=== PATIENT | male | born 1990 | race Caucasian/White ===

== ENCOUNTER 2018-01-08 21:13 | Inpatient (IN) | payer OTHER ==
[2018-01-08 21:24] VITALS: BMI 20.5
--- NOTE | 2018-01-08 21:48 | HP ---
COWS - Scale Resting Pulse: 0= [place] 80 or Below Sweatin=Flushed/Facial Moisture Restless Observation: 1= Difficult to Sit Still Pupil Size: 1= Pupils >than Normal Bone or Joint Aches: 2= Severe Diffuse Aches Runny Nose/ Eye Tearin= Nasal Congestion GI Upset > 30mins: 1= Stomach Cramp Tremor Observation: 2= Slight Tremor Visible Yawning Observation: 1= 1-2x During Session Anxiety or Irritability: 2=Irritable/Anxious Goose Flesh Skin: 0=Smooth Skin COWS Score: 13 Admission ROS [facility] - [facility] Chief Complaint: Heroin withdrawal symptoms Allergies/Adverse Reactions: Allergies Allergy/AdvReac Type Severity Reaction Status Date / Time No Known Allergies Allergy Verified 01/08/18 21:40 History of Present Illness: 28 years old male with a history of heroin dependence is seeking admission to detox. This is his first admission to [facility] and first detox. He has medical history of depression and anxiety. He denies suicide attempt and suicidal ideation at this time. Exam Limitations: No Limitations - Ebola screening Have you traveled outside of the country in the last 21 days: No Have you had contact with anyone from an Ebola affected area: No Have you been sick,other than usual withdrawal symptoms: No - Review of Systems Constitutional: Chills, Loss of Appetite, Malaise, Changes in sleep, Weakness EENT: reports: No Symptoms Reported Respiratory: reports: No Symptoms reported Cardiac: reports: No Symptoms Reported GI: reports: Nausea, Poor Appetite, Poor Fluid Intake, Abdominal cramping : reports: No Symptoms Reported Musculoskeletal: reports: No Symptoms Reported Integumentary: reports: Dryness, Flushing Neuro: reports: Tremors Endocrine: reports: No Symptoms Reported Hematology: reports: No Symptoms Reported Psychiatric: reports: Anxious, Depressed Other Systems: Reviewed and Negative Patient History - Patient Medical History Hx Anemia: No Hx Asthma: No Hx Chronic Obstructive Pulmonary Disease (COPD): No Hx Cancer: No Hx Cardiac Disorders: No Hx Congestive Heart Failure: No Hx Hypertension: No Hx Hypercholesterolemia: No Hx Pacemaker: No HX Cerebrovascular Accident: No Hx Seizures: No Hx Dementia: No Hx Diabetes: No Hx Gastrointestinal Disorders: No Hx Liver Disease: No Hx Genitourinary Disorders: No Hx Sexually Transmitted Disorders: No Hx Renal Disease (ESRD): No Hx Thyroid Disease: No Hx Human Immunodeficiency Virus (HIV): No (Negative 2017) Hx Hepatitis C: No Hx Depression: Yes (Not on medication) Hx Suicide Attempt: No (Denies suicidal ideation) Hx Bipolar Disorder: Yes Hx Schizophrenia: Yes Other Medical History: Anxiety - Not on medication - Patient Surgical History Past Surgical History: No - PPD History Previous Implant?: Yes Documented Results: Negative w/o proof Implanted On Prior [facility] Admission?: No PPD to be Administered?: Yes - Reproductive History Patient is a Female of Child Bearing Age (11 -55 yrs old): No (Male) - Smoking Cessation Smoking history: Current every day smoker Have you smoked in the past 12 months: No Aproximately how many cigarettes per day: 20 Hx Chewing Tobacco Use: No Initiated information on smoking cessation: Yes 'Breaking Loose' booklet given: 01/08/18 - Substance & Tx. History Hx Alcohol Use: No Hx Substance Use: Yes Substance Use Type: Heroin, Marijuana, Opiates, Tranquilizers Hx Substance Use Treatment: No Family Disease History - Family Disease History Family History: Denies Family Disease History: Diabetes: Grandparent, Father, Mother, Respiratory: Daughter Admission Physical Exam [facility] - Vital Signs Vital Signs: Vital Signs - 24 hr 01/08/18 21:19 Temperature 97.4 F L Pulse Rate 70 Respiratory 16 Rate Blood Pressure 116/64 - Physical General Appearance: Yes: Moderate Distress, Tremorous, Irritable, Sweating, Anxious HEENTM: Yes: EOMI, Normal ENT Inspection, Normocephalic, Normal Voice, LAYO Respiratory: Yes: Lungs Clear, Normal Breath Sounds, No Respiratory Distress Neck: Yes: Supple Breast: Yes: Breast Exam Deferred Cardiology: Yes: Regular Rhythm, Regular Rate Abdominal: Yes: Normal Bowel Sounds Genitourinary: Yes: Within Normal Limits Back: Yes: Normal Inspection Musculoskeletal: Yes: Within Normal Limits Extremities: Yes: Normal Inspection Neurological: Yes: certified dental assistant II-XII NML intact, Alert, Depressed Affect Integumentary: Yes: Warm Lymphatic: Yes: Within Normal Limits - Diagnostic (1) Alcohol dependence with uncomplicated withdrawal Current Visit: Yes Status: Chronic (2) Depression Current Visit: Yes Status: Chronic Qualifiers: Depression Type: unspecified Qualified Code(s): F32.9 - Major depressive disorder, single episode, unspecified (3) Dehydration Current Visit: Yes Status: Chronic Cleared for Admission [facility] - Detox or Rehab [facility] Level of Care: Medically Managed Detox Regimen/Protocol: Methadone [facility] Breath Alcohol Content Breath Alcohol Content: 0 Urine Drug Screen - Results Drug Screen Negative: No Urine Drug Screen Results: THC-Marijuana, OPI-Opiates, BAR-Barbiturates, OXY- Oxycodone
[2018-01-08] MEDS ORDERED: MELATONIN 5 MG TABLETS PO PRN (22:00)
[2018-01-08] MEDS ORDERED: guaiFENesin/D-METHORPHAN HB 10 ML UNIT-DOSE CUPS PO PRN (22:01)
[2018-01-08] MEDS ORDERED: ACETAMINOPHEN 325 MG TABLET (FP) PO PRN (22:01)
[2018-01-08] MEDS ORDERED: IBUPROFEN 400 MG TABLET (FP) PO PRN (22:01)
[2018-01-08] MEDS ORDERED: METHADONE HCL 10 MG TABLET (FOR DETOX USE ONLY) PO ONE ×2 (22:01→23:00)
[2018-01-08] MEDS ORDERED: NICOTINE POLACRILEX 2 MG GUM BC PRN (22:01)
[2018-01-08] MEDS ORDERED: MAG HYDROX/AL HYDROX/SIMETH 30 ML UNIT-DOSE CUP PO PRN (22:01)
[2018-01-08] MEDS ORDERED: LOPERAMIDE HCL 2 MG CAPSULE PO PRN (22:01)
[2018-01-08] MEDS ORDERED: P-EPHED 60MG/TRIPROLIDI 2.5MG TABLET PO PRN (22:01)
[2018-01-08] MEDS ORDERED: MENTHOL/PHENOL 1 EACH UD MM PRN (22:01)
[2018-01-08] MEDS ORDERED: MAGNESIUM HYDROX 2400MG/30ML ORAL SUSPENSION 30 ML CUP PO PRN (22:01)
[2018-01-08] MEDS ORDERED: MAGNESIUM CITRATE 300 ML BOTTLE PO PRN (22:01)
[2018-01-08] MEDS: diazePAM 5 MG TABLET PO PRN (23:36)
[2018-01-09] MEDS: diazePAM 5 MG TABLET PO PRN ×4 (05:42→22:07)
[2018-01-09] MEDS ORDERED: METHADONE HCL 10 MG TABLET (FOR DETOX USE ONLY) PO ONE (10:00)
[2018-01-09] MEDS: NICOTINE 14 MG/24 HOURS TOPICAL PATCH TD SCH (10:42)
[2018-01-09] MEDS: PRENATAL VITAMINS W/ FOLIC ACID TABLET (FP) PO SCH (10:42)
[2018-01-09 11:12] LABS: URINE APPEARANCE CLEAR; URINE BILIRUBIN NEGATIVE (<2.0 mg/dL); URINE COLOR YELLOW; URINE GLUCOSE (UA) NEGATIVE (NEGATIVE); URINE KETONE NEGATIVE (NEGATIVE); URINE LEUK ESTERASE NEGATIVE (NEGATIVE); URINE NITRITE NEGATIVE (NEGATIVE); URINE PROTEIN NEGATIVE (NEGATIVE); URINE UROBILINOGEN NEGATIVE mg/dL (0.2-1.0)
[2018-01-09 11:17] LABS: HEMOGLOBIN 13.1 GM/dL (11.7-16.9); MCHC 33.5 g/dl (32.0-35.9); MEAN CELL VOLUME 89.3 fl (80-96); MEAN PLT VOLUME 10.2 fl (7.5-11.1); PLATELET COUNT 143 K/MM3 (134-434); RBC 4.37 M/mm3 (4.00-5.60); RDW 13.5 % (11.9-15.9); WHITE BLOOD COUNT 7.4 K/mm3 (4.0-10.0)
[2018-01-09 11:35] LABS: ALBUMIN 4.1 g/dl (3.4-5.0); ALK PHOS 81 U/L (45-117); ANION GAP 9 MMOL/L (8-16); BILIRUBIN,TOTAL 1.5 mg/dL (0.2-1); BLOOD UREA NITROGEN 13 mg/dL (7-18); CALCIUM 10.4 mg/dL (8.5-10.1); CHLORIDE 103 mmol/L (98-107); CO2 29 mmol/L (21-32); CREATININE 0.7 mg/dL (0.55-1.3); GLUCOSE,RANDOM 82 mg/dL (74-106); POTASSIUM 3.9 mmol/L (3.5-5.1); SGOT/AST 18 U/L (15-37); SGPT/ALT 72 U/L (13-61); SODIUM 140 mmol/L (136-145); TOT PROT 7.2 g/dl (6.4-8.2)
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
--- NOTE | 2018-01-09 15:37 | PN ---
[facility] COWS - Scale Resting Pulse: 0= [place] 80 or Below Sweatin= Chills/Flushing Restless Observation: 1= Difficult to Sit Still Pupil Size: 1= Pupils >than Normal Bone or Joint Aches: 2= Severe Diffuse Aches Runny Nose/ Eye Tearin= Nasal Congestion GI Upset > 30mins: 2= Nausea/Diarrhea Tremor Observation of Outstretched Hands: 1= Tremor [place], Not Seen Yawning Observation: 2= >3x During Session Anxiety or Irritability: 1=Feels Anxious/Irritable Goose Flesh Skin: 0=Smooth Skin COWS Score: 12 BHS Progress Note (SOAP) Subjective: body aches joints pain trouble sleep at night Objective: 01/09/18 15:37 Vital Signs Temperature 98.1 F 01/09/18 14:01 Pulse Rate 60 01/09/18 14:01 Respiratory Rate 16 01/09/18 14:01 Blood Pressure 120/65 01/09/18 14:01 O2 Sat by Pulse Oximetry (%) Laboratory Last Values WBC 7.4 K/mm3 (4.0-10.0) 01/09/18 07:49 RBC 4.37 M/mm3 (4.00-5.60) 01/09/18 07:49 Hgb 13.1 GM/dL (11.7-16.9) 01/09/18 07:49 Hct 39.0 % (35.4-49) 01/09/18 07:49 MCV 89.3 fl (80-96) 01/09/18 07:49 MCH 30.0 pg (25.7-33.7) 01/09/18 07:49 MCHC 33.5 g/dl (32.0-35.9) 01/09/18 07:49 RDW 13.5 % (11.9-15.9) 01/09/18 07:49 Plt Count 143 K/MM3 (134-434) D 01/09/18 07:49 MPV 10.2 fl (7.5-11.1) 01/09/18 07:49 Sodium 140 mmol/L (136-145) 01/09/18 07:49 Potassium 3.9 mmol/L (3.5-5.1) 01/09/18 07:49 Chloride 103 mmol/L (98-107) 01/09/18 07:49 Carbon Dioxide 29 mmol/L (21-32) 01/09/18 07:49 Anion Gap 9 MMOL/L (8-16) 01/09/18 07:49 BUN 13 mg/dL (7-18) 01/09/18 07:49 Creatinine 0.7 mg/dL (0.55-1.3) 01/09/18 07:49 Creat Clearance w eGFR > 60 (>60) 01/09/18 07:49 Random Glucose 82 mg/dL (74-106) 01/09/18 07:49 Calcium 10.4 mg/dL (8.5-10.1) H 01/09/18 07:49 Total Bilirubin 1.5 mg/dL (0.2-1) H 01/09/18 07:49 AST 18 U/L (15-37) 01/09/18 07:49 ALT 72 U/L (13-61) H 01/09/18 07:49 Alkaline Phosphatase 81 U/L (45-117) 01/09/18 07:49 Total Protein 7.2 g/dl (6.4-8.2) 01/09/18 07:49 Albumin 4.1 g/dl (3.4-5.0) 01/09/18 07:49 Urine Color Yellow 01/09/18 07:49 Urine Appearance Clear 01/09/18 07:49 Urine pH 6.0 (5.0-8.0) D 01/09/18 07:49 Ur Specific [place] 1.028 (1.001-1.035) 01/09/18 07:49 Urine Protein Negative (NEGATIVE) 01/09/18 07:49 Urine Glucose (UA) Negative (NEGATIVE) 01/09/18 07:49 Urine Ketones Negative (NEGATIVE) 01/09/18 07:49 Urine Blood Negative (NEGATIVE) 01/09/18 07:49 Urine Nitrite Negative (NEGATIVE) 01/09/18 07:49 Urine Bilirubin Negative (<2.0 mg/dL) 01/09/18 07:49 Urine Urobilinogen Negative mg/dL (0.2-1.0) 01/09/18 07:49 Ur Leukocyte Esterase Negative (NEGATIVE) 01/09/18 07:49 RPR Titer Nonreactive (NONREACTIVE) 01/09/18 07:49 lab noted Assessment: 01/09/18 15:40 withdrawal sx Plan: continue detox
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
[2018-01-09] MEDS: risperiDONE 1 MG TABLET (FP) PO SCH (22:07)
[2018-01-09] MEDS: THIAMINE HCL 100 MG TABLET (FP) PO SCH (22:07)
[2018-01-10] MEDS: diazePAM 5 MG TABLET PO PRN ×3 (08:39→18:46)
[2018-01-10] MEDS ORDERED: METHADONE HCL 5 MG TABLET (FOR DETOX USE ONLY) PO ONE (10:00)
[2018-01-10] MEDS: PRENATAL VITAMINS W/ FOLIC ACID TABLET (FP) PO SCH (10:02)
[2018-01-10] MEDS: risperiDONE 1 MG TABLET (FP) PO SCH ×2 (10:03→22:03)
[2018-01-10] MEDS: NICOTINE 14 MG/24 HOURS TOPICAL PATCH TD SCH (10:03)
[2018-01-10 10:32] LABS: ALBUMIN 3.7 g/dl (3.4-5.0); ALK PHOS 70 U/L (45-117); ANION GAP 5 MMOL/L (8-16); BILIRUBIN,TOTAL 0.9 mg/dL (0.2-1); BLOOD UREA NITROGEN 12 mg/dL (7-18); CALCIUM 9.6 mg/dL (8.5-10.1); CHLORIDE 105 mmol/L (98-107); CO2 29 mmol/L (21-32); CREATININE 0.6 mg/dL (0.55-1.3); GLUCOSE,RANDOM 77 mg/dL (74-106); POTASSIUM 4.2 mmol/L (3.5-5.1); SGOT/AST 23 U/L (15-37); SGPT/ALT 65 U/L (13-61); SODIUM 138 mmol/L (136-145); TOT PROT 6.5 g/dl (6.4-8.2)
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
--- NOTE | 2018-01-10 16:31 | PN ---
[facility] COWS - Scale Resting Pulse: 0= [place] 80 or Below Sweatin=Flushed/Facial Moisture Restless Observation: 3= Extraneous Movement Pupil Size: 0= Normal to Room Light Bone or Joint Aches: 0= None Runny Nose/ Eye Tearin= Nasal Congestion GI Upset > 30mins: 1= Stomach Cramp Tremor Observation of Outstretched Hands: 1= Tremor [place], Not Seen Yawning Observation: 1= 1-2x During Session Anxiety or Irritability: 2=Irritable/Anxious Goose Flesh Skin: 0=Smooth Skin COWS Score: 11 S Progress Note (SOAP) Subjective: CONSTIPATION SHAKES SWEATS STATES "CAN I GET LIBRIUM BECAUSE IT WORKS BETTER FOR ME" Objective: 01/10/18 16:28 A & OX 3 aNXIOUS RESTLESS Vital Signs Temperature 97.3 F L 01/10/18 13:22 Pulse Rate 63 01/10/18 13:22 Respiratory Rate 18 01/10/18 13:22 Blood Pressure 122/72 01/10/18 13:22 O2 Sat by Pulse Oximetry (%) Laboratory Last Values WBC 7.4 K/mm3 (4.0-10.0) 01/09/18 07:49 RBC 4.37 M/mm3 (4.00-5.60) 01/09/18 07:49 Hgb 13.1 GM/dL (11.7-16.9) 01/09/18 07:49 Hct 39.0 % (35.4-49) 01/09/18 07:49 MCV 89.3 fl (80-96) 01/09/18 07:49 MCH 30.0 pg (25.7-33.7) 01/09/18 07:49 MCHC 33.5 g/dl (32.0-35.9) 01/09/18 07:49 RDW 13.5 % (11.9-15.9) 01/09/18 07:49 Plt Count 143 K/MM3 (134-434) D 01/09/18 07:49 MPV 10.2 fl (7.5-11.1) 01/09/18 07:49 Sodium 138 mmol/L (136-145) 01/10/18 07:00 Potassium 4.2 mmol/L (3.5-5.1) 01/10/18 07:00 Chloride 105 mmol/L (98-107) 01/10/18 07:00 Carbon Dioxide 29 mmol/L (21-32) 01/10/18 07:00 Anion Gap 5 MMOL/L (8-16) L 01/10/18 07:00 BUN 12 mg/dL (7-18) 01/10/18 07:00 Creatinine 0.6 mg/dL (0.55-1.3) 01/10/18 07:00 Creat Clearance w eGFR > 60 (>60) 01/10/18 07:00 Random Glucose 77 mg/dL (74-106) 01/10/18 07:00 Calcium 9.6 mg/dL (8.5-10.1) 01/10/18 07:00 Total Bilirubin 0.9 mg/dL (0.2-1) 01/10/18 07:00 AST 23 U/L (15-37) 01/10/18 07:00 ALT 65 U/L (13-61) H 01/10/18 07:00 Alkaline Phosphatase 70 U/L (45-117) 01/10/18 07:00 Total Protein 6.5 g/dl (6.4-8.2) 01/10/18 07:00 Albumin 3.7 g/dl (3.4-5.0) 01/10/18 07:00 Urine Color Yellow 01/09/18 07:49 Urine Appearance Clear 01/09/18 07:49 Urine pH 6.0 (5.0-8.0) D 01/09/18 07:49 Ur Specific [place] 1.028 (1.001-1.035) 01/09/18 07:49 Urine Protein Negative (NEGATIVE) 01/09/18 07:49 Urine Glucose (UA) Negative (NEGATIVE) 01/09/18 07:49 Urine Ketones Negative (NEGATIVE) 01/09/18 07:49 Urine Blood Negative (NEGATIVE) 01/09/18 07:49 Urine Nitrite Negative (NEGATIVE) 01/09/18 07:49 Urine Bilirubin Negative (<2.0 mg/dL) 01/09/18 07:49 Urine Urobilinogen Negative mg/dL (0.2-1.0) 01/09/18 07:49 Ur Leukocyte Esterase Negative (NEGATIVE) 01/09/18 07:49 RPR Titer Nonreactive (NONREACTIVE) 01/09/18 07:49 LABS NOTED Assessment: 01/10/18 16:29 IZABELA SX Plan: CONTIMNUE DETOX METHADONE REGIMEN MAINTAINED S/P PT'S + OPIATES IN [facility].
[2018-01-10] MEDS: THIAMINE HCL 100 MG TABLET (FP) PO SCH (22:02)
[2018-01-10] MEDS: ZOLPIDEM TARTRATE 5 MG TABLET PO PRN (22:03)
[2018-01-11] MEDS: diazePAM 5 MG TABLET PO PRN ×2 (09:53→15:35)
[2018-01-11] MEDS: risperiDONE 1 MG TABLET (FP) PO SCH ×2 (09:55→22:12)
[2018-01-11] MEDS: NICOTINE 14 MG/24 HOURS TOPICAL PATCH TD SCH (09:55)
[2018-01-11] MEDS: PRENATAL VITAMINS W/ FOLIC ACID TABLET (FP) PO SCH (09:56)
[2018-01-11] MEDS ORDERED: METHADONE HCL 5 MG TABLET (FOR DETOX USE ONLY) PO ONE (10:00)
--- NOTE | 2018-01-11 11:08 | EKG ---
Test Reason : Blood Pressure : / mmHG Vent. Rate : 049 BPM Atrial Rate : 049 BPM P-R Int : 106 ms QRS Dur : 104 ms QT Int : 438 ms P-R-T Axes : -16 071 048 degrees QTc Int : 395 ms SINUS BRADYCARDIA WITH SHORT NC OTHERWISE NORMAL ECG Confirmed by Piyush Whitley MD ([id number]) on 01/11/2018 11:07:37 AM Referred By: Confirmed By:Piyush Whitley MD
--- NOTE | 2018-01-11 11:11 | PN ---
[facility] Progress Note Note: Patient continues with detox regimen for Opiod withdrawal. States he has nausea , diarrhea, sweating and anxiety. Vital Signs Temperature 97.2 F L 01/11/18 09:19 Pulse Rate 72 01/11/18 09:19 Respiratory Rate 18 01/11/18 09:19 Blood Pressure 121/77 01/11/18 09:19 O2 Sat by Pulse Oximetry (%) Laboratory Tests 01/09/18 01/09/18 01/09/18 07:49 07:49 07:49 WBC 7.4 RBC 4.37 Hgb 13.1 Hct 39.0 MCV 89.3 MCH 30.0 MCHC 33.5 RDW 13.5 Plt Count 143 D MPV 10.2 Sodium 140 Potassium 3.9 Chloride 103 Carbon Dioxide 29 Anion Gap 9 BUN 13 Creatinine 0.7 Creat Clearance w eGFR > 60 Random Glucose 82 Calcium 10.4 H Total Bilirubin 1.5 H AST 18 ALT 72 H Alkaline Phosphatase 81 Total Protein 7.2 Albumin 4.1 Urine Color Urine Appearance Urine pH Ur Specific [place] Urine Protein Urine Glucose (UA) Urine Ketones Urine Blood Urine Nitrite Urine Bilirubin Urine Urobilinogen Ur Leukocyte Esterase RPR Titer Nonreactive 01/09/18 01/10/18 07:49 07:00 WBC RBC Hgb Hct MCV MCH MCHC RDW Plt Count MPV Sodium 138 Potassium 4.2 Chloride 105 Carbon Dioxide 29 Anion Gap 5 L BUN 12 Creatinine 0.6 Creat Clearance w eGFR > 60 Random Glucose 77 Calcium 9.6 Total Bilirubin 0.9 AST 23 ALT 65 H Alkaline Phosphatase 70 Total Protein 6.5 Albumin 3.7 Urine Color Yellow Urine Appearance Clear Urine pH 6.0 D Ur Specific [place] 1.028 Urine Protein Negative Urine Glucose (UA) Negative Urine Ketones Negative Urine Blood Negative Urine Nitrite Negative Urine Bilirubin Negative Urine Urobilinogen Negative Ur Leukocyte Esterase Negative RPR Titer PE: alert and oriented skin warm and moist amb ad sadie car s1s2 resp cta bl ext no edema, full rom anxious and pacing on unit A/P; withdrawal syndrome continue detox as ordered encourage oral fluids continue to monitor clinically
[2018-01-11] MEDS: THIAMINE HCL 100 MG TABLET (FP) PO SCH (22:12)
[2018-01-11] MEDS: ZOLPIDEM TARTRATE 5 MG TABLET PO PRN (22:12)
[2018-01-12] MEDS ORDERED: METHADONE HCL 10 MG TABLET (FOR DETOX USE ONLY) PO ONE (10:00)
[2018-01-12] MEDS: NICOTINE 14 MG/24 HOURS TOPICAL PATCH TD SCH (10:10)
[2018-01-12] MEDS: risperiDONE 1 MG TABLET (FP) PO SCH ×2 (10:10→22:09)
[2018-01-12] MEDS: PRENATAL VITAMINS W/ FOLIC ACID TABLET (FP) PO SCH (10:10)
--- NOTE | 2018-01-12 13:11 | PN ---
B[facility] Progress Note Note: PATIENT ON DETOX PROTOCOL FOR OPIOD DEPENDENCE. Vital Signs Temperature 97.4 F L 01/12/18 09:42 Pulse Rate 62 01/12/18 09:42 Respiratory Rate 18 01/12/18 09:42 Blood Pressure 121/72 01/12/18 09:42 O2 Sat by Pulse Oximetry (%) Laboratory Tests 01/09/18 01/09/18 01/09/18 07:49 07:49 07:49 WBC 7.4 RBC 4.37 Hgb 13.1 Hct 39.0 MCV 89.3 MCH 30.0 MCHC 33.5 RDW 13.5 Plt Count 143 D MPV 10.2 Sodium 140 Potassium 3.9 Chloride 103 Carbon Dioxide 29 Anion Gap 9 BUN 13 Creatinine 0.7 Creat Clearance w eGFR > 60 Random Glucose 82 Calcium 10.4 H Total Bilirubin 1.5 H AST 18 ALT 72 H Alkaline Phosphatase 81 Total Protein 7.2 Albumin 4.1 Urine Color Urine Appearance Urine pH Ur Specific [place] Urine Protein Urine Glucose (UA) Urine Ketones Urine Blood Urine Nitrite Urine Bilirubin Urine Urobilinogen Ur Leukocyte Esterase RPR Titer Nonreactive 01/09/18 01/10/18 07:49 07:00 WBC RBC Hgb Hct MCV MCH MCHC RDW Plt Count MPV Sodium 138 Potassium 4.2 Chloride 105 Carbon Dioxide 29 Anion Gap 5 L BUN 12 Creatinine 0.6 Creat Clearance w eGFR > 60 Random Glucose 77 Calcium 9.6 Total Bilirubin 0.9 AST 23 ALT 65 H Alkaline Phosphatase 70 Total Protein 6.5 Albumin 3.7 Urine Color Yellow Urine Appearance Clear Urine pH 6.0 D Ur Specific [place] 1.028 Urine Protein Negative Urine Glucose (UA) Negative Urine Ketones Negative Urine Blood Negative Urine Nitrite Negative Urine Bilirubin Negative Urine Urobilinogen Negative Ur Leukocyte Esterase Negative RPR Titer SUBJ: C/O MILD NAUSEA AND BODYACHES. OBJ: ALERT AND ORIENTED SKIN WARM AND DRY CAR S1S2 RESP CTA BL GO SOFT, BS+ NT A/P: WITHDRAWAL SYNDROME CONTINUE DETOX PER PROTOCOL ENCOURAGED ORAL FLUIDS CONTINUE TO MONITOR CLINICALLY
[2018-01-12] MEDS: THIAMINE HCL 100 MG TABLET (FP) PO SCH (22:09)
[2018-01-12] MEDS: ZOLPIDEM TARTRATE 5 MG TABLET PO PRN (22:09)
[2018-01-13] MEDS ORDERED: METHADONE HCL 5 MG TABLET (FOR DETOX USE ONLY) PO ONE (06:00)
[2018-01-13 10:13] VITALS: BP 118/73; PULSE 58; TEMP 97.3
[2018-01-13] MEDS: NICOTINE 14 MG/24 HOURS TOPICAL PATCH TD SCH (10:35)
[2018-01-13] MEDS: risperiDONE 1 MG TABLET (FP) PO SCH (10:35)
[2018-01-13] MEDS: PRENATAL VITAMINS W/ FOLIC ACID TABLET (FP) PO SCH (10:35)
--- NOTE | 2018-01-13 10:54 | DS ---
[facility] Detox Discharge Summary Admission Date: 01/08/18 Discharge Date: 01/13/18 - History Present History: Opioid Dependence - Physical Exam Results Vital Signs: Vital Signs Temperature 97.3 F L 01/13/18 10:12 Pulse Rate 58 L 01/13/18 10:12 Respiratory Rate 20 01/13/18 10:12 Blood Pressure 118/73 01/13/18 10:12 O2 Sat by Pulse Oximetry (%) Pertinent Admission Physical Exam Findings: PATIENT TOLERATED DETOX WELL. MEDICALLY STABLE. PATIENT ALERT AND ORIENTED X 3. AMB AD ENRIQUE. SKIN WARM AND DRY. IN NAD. DENIES SI/HI. PATIENT ACCEPTED REHAB REFERRAL TO [facility]. - Treatment Hospital Course: Detox Protocol Followed, Detoxed Safely, Responded well, Discharged Condition Good, Rehab Referral Accepted Patient has Accepted a Rehab Referral to: [facility] ([facility]) - Medication Discharge Medications: Ambulatory Orders NK [No Known Home Medication] 01/08/18 - Diagnosis (1) Withdrawal syndrome Current Visit: Yes Status: Resolved Qualifiers: Substance type: opioid Qualified Code(s): F11.23 - Opioid dependence with withdrawal - AMA Did Patient Leave Against Medical Advice: No
== END 2018-01-13 14:04 | disposition other institution (70) | DRG 773 ==
LOC: YASAS 21:13 → Y6N 22:36 → Y3N 01-09 17:33
PROC: HZ2ZZZZ Detoxification Services for Substance Abuse Treatment (ICD-10-PCS; principal; 2018-01-08)
DX: F11.23 Opioid dependence with withdrawal (principal); F10.230 Alcohol dependence with withdrawal, uncomplicated; F17.210 Nicotine dependence, cigarettes, uncomplicated; F20.9 Schizophrenia, unspecified; F32.9 Major depressive disorder, single episode, unspecified; F19.24 Other psychoactive substance dependence with psychoactive substance-induced mood disorder; G47.00 Insomnia, unspecified; E86.0 Dehydration; M54.9 Dorsalgia, unspecified
CPT/HCPCS: 36415; 80053; 81003; 85027; 86593; 93005; 93010

== ENCOUNTER 2018-01-13 13:22 | Inpatient (IN) | payer OTHER ==
[2018-01-13] MEDS ORDERED: MAGNESIUM CITRATE 300 ML BOTTLE PO PRN (15:35)
[2018-01-13] MEDS ORDERED: MAG HYDROX/AL HYDROX/SIMETH 30 ML UNIT-DOSE CUP PO PRN (15:35)
[2018-01-13] MEDS ORDERED: guaiFENesin/D-METHORPHAN HB 10 ML UNIT-DOSE CUPS PO PRN (15:35)
[2018-01-13] MEDS ORDERED: LOPERAMIDE HCL 2 MG CAPSULE PO PRN (15:35)
[2018-01-13] MEDS ORDERED: MAGNESIUM HYDROX 2400MG/30ML ORAL SUSPENSION 30 ML CUP PO PRN (15:35)
[2018-01-13] MEDS ORDERED: IBUPROFEN 400 MG TABLET (FP) PO PRN (15:35)
[2018-01-13] MEDS ORDERED: ACETAMINOPHEN 325 MG TABLET (FP) PO PRN (15:35)
[2018-01-13] MEDS ORDERED: MENTHOL/PHENOL 1 EACH UD MM PRN (15:35)
[2018-01-13] MEDS ORDERED: hydrOXYzine PAMOATE 50 MG CAPSULE (FP) PO PRN (15:35)
[2018-01-13] MEDS ORDERED: P-EPHED 60MG/TRIPROLIDI 2.5MG TABLET PO PRN (15:35)
[2018-01-13] MEDS ORDERED: NICOTINE POLACRILEX 2 MG GUM BUC PRN (15:38)
[2018-01-13] MEDS: THIAMINE HCL 100 MG TABLET (FP) PO SCH (21:16)
[2018-01-13] MEDS: MELATONIN 5 MG TABLETS PO PRN (21:21)
[2018-01-14] MEDS: PRENATAL VITAMINS W/ FOLIC ACID TABLET (FP) PO SCH (09:59)
--- NOTE | 2018-01-14 11:24 | PN ---
[facility] Progress Note Note: Patient is a new admission from detox. He saw Dr Nicole on 01/09/18 while in detox and he was prescribed Risperdal 1 mg po BID. Will continue same medication
[2018-01-14] MEDS: risperiDONE 1 MG TABLET (FP) PO SCH ×2 (13:22→21:08)
[2018-01-14] MEDS: THIAMINE HCL 100 MG TABLET (FP) PO SCH (21:10)
[2018-01-15] MEDS: PRENATAL VITAMINS W/ FOLIC ACID TABLET (FP) PO SCH (09:51)
[2018-01-15] MEDS: risperiDONE 1 MG TABLET (FP) PO SCH ×2 (09:53→21:20)
[2018-01-15] MEDS: NICOTINE 14 MG/24 HOURS TOPICAL PATCH TD SCH (13:14)
[2018-01-15] MEDS: MELATONIN 5 MG TABLETS PO PRN (21:20)
[2018-01-15] MEDS: THIAMINE HCL 100 MG TABLET (FP) PO SCH (21:20)
[2018-01-16] MEDS: NICOTINE 14 MG/24 HOURS TOPICAL PATCH TD SCH (09:12)
[2018-01-16] MEDS: risperiDONE 1 MG TABLET (FP) PO SCH ×2 (09:12→21:15)
[2018-01-16] MEDS: PRENATAL VITAMINS W/ FOLIC ACID TABLET (FP) PO SCH (09:12)
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
[2018-01-16] MEDS: THIAMINE HCL 100 MG TABLET (FP) PO SCH (21:15)
[2018-01-16] MEDS ORDERED: ZOLPIDEM TARTRATE 5 MG TABLET PO PRN (22:00)
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
[2018-01-17 06:54] VITALS: BP 125/60; PULSE 71; TEMP 97.6
[2018-01-17] MEDS: NICOTINE 14 MG/24 HOURS TOPICAL PATCH TD SCH (09:44)
[2018-01-17] MEDS: risperiDONE 1 MG TABLET (FP) PO SCH (09:44)
[2018-01-17] MEDS: PRENATAL VITAMINS W/ FOLIC ACID TABLET (FP) PO SCH (09:44)
== END 2018-01-17 15:00 | disposition left against medical advice (07) | DRG 770 ==
LOC: YASAS 13:22 → Y5N 13:23
PROVIDERS: ADMIT Psychiatry & Neurology Psychiatry; ATTEND Psychiatry & Neurology Psychiatry
PROC: HZ42ZZZ Group Counseling for Substance Abuse Treatment, Cognitive-Behavioral (ICD-10-PCS; principal; 2018-01-13)
DX: F11.20 Opioid dependence, uncomplicated (principal); F10.20 Alcohol dependence, uncomplicated; F12.20 Cannabis dependence, uncomplicated; F17.210 Nicotine dependence, cigarettes, uncomplicated; F25.9 Schizoaffective disorder, unspecified; F19.280 Other psychoactive substance dependence with psychoactive substance-induced anxiety disorder; F19.282 Other psychoactive substance dependence with psychoactive substance-induced sleep disorder
CPT/HCPCS: 36415; 87389; J2794

== ENCOUNTER 2019-12-30 18:42 | Inpatient (IN) | payer OTHER ==
[2019-12-30 19:04] VITALS: BMI 24.5
--- NOTE | 2019-12-30 20:19 | BHS.RME ---
Substance Use & Tx History - Substance Use History Heroin Substance amount: 4 bags Frequency of use: Daily Substance route: Inhalation (ex: sniffing or snorting) PCP Substance amount: 1 bag Frequency of use: Daily Cannabis Substance amount: "a lot " Frequency of use: Daily Physical/Psych/Mental Status - Behavior Eye Contact: Decreased - Cooperativeness Cooperativeness: Cooperative - Thinking Thought Processes: Logical - Physical Health Problems Is patient presently having any pain?: No Does patient presently have any injuries (include location): No Does patient currently have a fever: No COWS - Scale Resting Pulse: 0= IN 80 or Below Sweatin= No chills or Flushing Restless Observation: 0= Sits Still Pupil Size: 0= Normal to Room Light Bone or Joint Aches: 0= None Runny Nose/ Eye Tearin= None GI Upset > 30mins: 2= Nausea/Diarrhea Tremor Observation: 0= None Yawning Observation: 0= None Anxiety or Irritability: 0= None Goose Flesh Skin: 0=Smooth Skin COWS Score: 2
--- NOTE | 2019-12-30 20:24 | HP ---
COWS - Scale Resting Pulse: 0= [place] 80 or Below Sweatin= No chills or Flushing Restless Observation: 0= Sits Still Pupil Size: 0= Normal to Room Light Bone or Joint Aches: 0= None Runny Nose/ Eye Tearin= Runny Nose/Eyes GI Upset > 30mins: 2= Nausea/Diarrhea Tremor Observation: 0= None Yawning Observation: 0= None Anxiety or Irritability: 0= None Goose Flesh Skin: 0=Smooth Skin COWS Score: 4 CIWA Score - Admission Criteria OASAS Guidelines: Admission for Medically Managed Detox: Requires at least one of the followin. CIWA greater than 12 2. Seizures within the past 24 hours 3. Delirium tremens within the past 24 hours 4. Hallucinations within the past 24 hours 5. Acute intervention needed for co occurring medical disorder 6. Acute intervention needed for co occurring psychiatric disorder 7. Severe withdrawal that cannot be handled at a lower level of care (continued vomiting, continued diarrhea, abnormal vital signs) requiring intravenous medication and/or fluids 8. Admitting History and Physical - Past Medical History Gastrointestinal: Yes: GERD Endocrine: Yes: Diabetes Mellitus (diet controlled since he lost weight, He was obease in the past) - Smoking History Smoking history: Current every day smoker Have you smoked in the past 12 months: No Aproximately how many cigarettes per day: 20 - Alcohol/Substance Use Hx Alcohol Use: Yes - Social History ADL: Support Services Admission [facility] Allergies/Adverse Reactions: Allergies Allergy/AdvReac Type Severity Reaction Status Date / Time No Known Allergies Allergy Verified 12/30/19 15:19 History of Present Illness: 29 y.o. male requesting detox from heroin use , reports 4 bags/day via inhalation x 3 years , latest use today 10- am . Currently drowsy , falls asleep frequently during interview. Per MR , was in the ER today @ [facility] for intoxication . PCP - 1 bag daily since age 15 cannabis - since age 11 tobacco : 1 ppd , since age 13 denies other illicits PMHx : denies PShx : denies Meds : denies Exam Limitations: Clinical Condition, Intoxication - Review of Systems Constitutional: No Symptoms Reported EENT: reports: No Symptoms Reported Respiratory: reports: No Symptoms reported Cardiac: reports: No Symptoms Reported GI: reports: Nausea : reports: No Symptoms Reported Musculoskeletal: reports: No Symptoms Reported Integumentary: reports: No Symptoms Reported Neuro: reports: No Symptoms reported Endocrine: reports: No Symptoms Reported Psychiatric: reports: No Sypmtoms Reported, Anxious, Depressed, Disorientated Patient History - Patient Medical History Hx Anemia: No Hx Asthma: No Hx Chronic Obstructive Pulmonary Disease (COPD): No Hx Cancer: No Hx Cardiac Disorders: No Hx Congestive Heart Failure: No Hx Hypertension: No Hx Hypercholesterolemia: No Hx Pacemaker: No HX Cerebrovascular Accident: No Hx Seizures: Yes Hx Dementia: No Hx Diabetes: No Hx Gastrointestinal Disorders: No Hx Liver Disease: No Hx Genitourinary Disorders: No Hx Sexually Transmitted Disorders: No Hx Renal Disease (ESRD): No Hx Thyroid Disease: No Hx Human Immunodeficiency Virus (HIV): No (Negative 2016) Hx Hepatitis C: No Hx Depression: Yes Hx Suicide Attempt: No Hx Bipolar Disorder: Yes Hx Schizophrenia: Yes - Patient Surgical History Past Surgical History: No Hx Neurologic Surgery: No Hx Cataract Extraction: No Hx Cardiac Surgery: No Hx Lung Surgery: No Hx Breast Surgery: No Hx Breast Biopsy: No Hx Abdominal Surgery: No Hx Appendectomy: No Hx Cholecystectomy: No Hx Genitourinary Surgery: No Hx Section: No Hx Orthopedic Surgery: No Anesthesia Reaction: No - PPD History Previous Implant?: Yes Documented Results: Negative w/proof Date: 01/10/18 Results: 0mm - Reproductive History Patient : No - Smoking Cessation Smoking history: Current every day smoker Have you smoked in the past 12 months: No Aproximately how many cigarettes per day: 20 Cigars Per Day: 0 Hx Chewing Tobacco Use: No Initiated information on smoking cessation: Yes 'Breaking Loose' booklet given: 12/31/19 - Substances abused Heroin Substance route: Inhalation Frequency: Daily Amount used: 5 bags Age of first use: 27 Date of last use: 12/30/19 PCP Substance route: Smoking Frequency: 3-6 times per week Amount used: $30 Age of first use: 15 Date of last use: 12/30/19 Admission Physical Exam BHS - Vital Signs Vital Signs: Vital Signs - 24 hr 12/30/19 12/30/19 18:54 19:50 Temperature 97.5 F L 97.5 F L Pulse Rate 62 62 Respiratory 18 18 Rate Blood Pressure 138/83 138/83 - Physical General Appearance: Yes: Mild Distress, Moderate Distress, Intoxicated, Anxious HEENTM: Yes: EOMI, Hearing grossly Normal, Normocephalic, Normal Voice, Nasal Congestion, Rhinorrhea Respiratory: Yes: Chest Non-Tender, Lungs Clear, Normal Breath Sounds, No Respiratory Distress, No Accessory Muscle Use Neck: Yes: No masses,lesions,Nodules, Trachea in good position Cardiology: Yes: Regular Rhythm, Regular Rate, S1, S2 Abdominal: Yes: Non Tender, Soft Musculoskeletal: Yes: Gait Steady Extremities: Yes: Normal Capillary Refill, Normal Range of Motion, Non-Tender Neurological: Yes: Alert, Motor Strength 5/5, Disoriented, Depressed Affect Integumentary: Yes: Warm - Diagnostic (1) Opioid intoxication Current Visit: Yes Status: Acute Qualifiers: Complication of substance-induced condition: uncomplicated Qualified Code(s): F11.920 - Opioid use, unspecified with intoxication, uncomplicated Breathalyzer - Breathalyzer Breathalyzer: 0 Urine Drug Screen - Test Device Lot number: [id number] Expiration date: 07/18/21 - Control Is test valid?: Yes - Results Drug screen NEGATIVE: No Urine drug screen results: THC-Marijuana, FEN-Fentanyl, MOP-Opiates Inpatient Rehab Admission - Rehab Decision to Admit Inpatient rehab admission?: No
[2019-12-30] MEDS ORDERED: MENTHOL/PHENOL 1 EACH UD MM PRN (20:26)
[2019-12-30] MEDS ORDERED: ONDANSETRON *ODT* 4 MG TABLET SL PRN (20:26)
[2019-12-30] MEDS ORDERED: BISMUTH SUBSALICYLATE 524 MG/30 ML UD PO PRN (20:26)
[2019-12-30] MEDS ORDERED: hydrOXYzine PAMOATE 25 MG CAPSULE (FP) PO PRN (20:26)
[2019-12-30] MEDS ORDERED: MAG HYDROX/AL HYDROX/SIMETH 30 ML UNIT-DOSE CUP PO PRN (20:26)
[2019-12-30] MEDS ORDERED: ACETAMINOPHEN 325 MG TABLET (FP) PO PRN ×2 (20:26)
[2019-12-30] MEDS ORDERED: MAGNESIUM CITRATE 300 ML BOTTLE PO PRN (20:26)
[2019-12-30] MEDS ORDERED: IBUPROFEN 400 MG TABLET (FP) PO PRN (20:26)
[2019-12-30] MEDS ORDERED: NICOTINE POLACRILEX 2 MG GUM BUC PRN (20:26)
[2019-12-30] MEDS ORDERED: MAGNESIUM HYDROX 2400MG/30ML ORAL SUSPENSION 30 ML CUP PO PRN (20:26)
[2019-12-30] MEDS ORDERED: cloNIDine HCL 0.1 MG TABLET PO PRN (20:29)
[2019-12-30] MEDS: MELATONIN 5 MG TABLETS PO SCH (21:45)
[2019-12-30] MEDS: THIAMINE HCL 100 MG TABLET (FP) PO SCH (21:45)
[2019-12-31] MEDS ORDERED: METHADONE HCL 10 MG TABLET (FOR DETOX USE ONLY) PO ONE (10:00)
[2019-12-31] MEDS: PRENATAL VITAMINS W/ FOLIC ACID TABLET (FP) PO SCH (10:41)
[2019-12-31] MEDS ORDERED: hydrOXYzine PAMOATE 25 MG CAPSULE (FP) PO PRN (14:42)
--- NOTE | 2019-12-31 14:44 | PN ---
BHS COWS - Scale Resting Pulse: 0= [place] 80 or Below Sweatin= Chills/Flushing Restless Observation: 0= Sits Still Pupil Size: 1= Pupils >than Normal Bone or Joint Aches: 1= Mild Discomfort Runny Nose/ Eye Tearin= None GI Upset > 30mins: 1= Stomach Cramp Tremor Observation of Outstretched Hands: 2= Slight Tremor Visible Yawning Observation: 0= None Anxiety or Irritability: 1=Feels Anxious/Irritable Goose Flesh Skin: 3=Piloerection COWS Score: 10 BHS Progress Note (SOAP) Subjective: 29 years old male was admitted on 12/30/19 for opiate withdrawal sx management treating with opiate withdrawal sx management restlessness anxiousness increase vistaril to 50 mg qtc 450 Objective: 12/31/19 14:45 Laboratory Tests 12/31/19 12/31/19 07:30 07:30 Syphilis Serology Non-reactive HIV Ag/Ab Combo Qual Negative Vital Signs - 24 hr 12/30/19 12/30/19 12/30/19 18:54 19:50 21:00 Temperature 97.5 F L 97.5 F L 97.3 F L Pulse Rate 62 62 70 Respiratory 18 18 16 Rate Blood Pressure 138/83 138/83 137/82 O2 Sat by Pulse 100 Oximetry (%) 12/31/19 12/31/19 12/31/19 06:16 09:00 12:45 Temperature 97.7 F 97.3 F L 97.5 F L Pulse Rate 66 59 L 59 L Respiratory 18 18 18 Rate Blood Pressure 112/66 111/61 110/62 O2 Sat by Pulse 98 97 Oximetry (%) 12/31/19 14:45 Laboratory Tests lab pending Assessment: 12/31/19 14:46 opiate withdrawal Plan: methadone detox regiment
[2019-12-31] MEDS: METHOCARBAMOL 500 MG TABLET PO PRN (20:51)
[2019-12-31] MEDS: THIAMINE HCL 100 MG TABLET (FP) PO SCH (22:00)
[2019-12-31] MEDS: MELATONIN 5 MG TABLETS PO SCH (22:00)
[2020-01-01] MEDS ORDERED: METHADONE HCL 10 MG TABLET (FOR DETOX USE ONLY) ONE (09:37)
[2020-01-01] MEDS ORDERED: METHADONE HCL 5 MG TABLET (FOR DETOX USE ONLY) ONE (09:38)
[2020-01-01] MEDS: METHOCARBAMOL 500 MG TABLET PO PRN ×2 (09:40→22:19)
[2020-01-01] MEDS: PRENATAL VITAMINS W/ FOLIC ACID TABLET (FP) PO SCH (09:41)
[2020-01-01] MEDS ORDERED: METHADONE HCL 10 MG TABLET (FOR DETOX USE ONLY) PO ONE (10:00)
[2020-01-01] MEDS ORDERED: METHADONE (DETOX) 10 MG, METHADONE (DETOX) 5 MG PO ONE (10:00)
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
[2020-01-01] MEDS: OLANZapine 10 MG TABLET PO SCH ×2 (11:39→22:17)
--- NOTE | 2020-01-01 13:13 | PN ---
BHS COWS - Scale Resting Pulse: 0= [place] 80 or Below Sweatin= Chills/Flushing Restless Observation: 0= Sits Still Pupil Size: 1= Pupils >than Normal Bone or Joint Aches: 1= Mild Discomfort Runny Nose/ Eye Tearin= Nasal Congestion GI Upset > 30mins: 1= Stomach Cramp Tremor Observation of Outstretched Hands: 1= Tremor [place], Not Seen Yawning Observation: 0= None Anxiety or Irritability: 2=Irritable/Anxious Goose Flesh Skin: 0=Smooth Skin COWS Score: 8 BHS Progress Note (SOAP) Subjective: 29 years old male was admitted on 12/25/19 for opiate withdrawal sx management treating with methadone detox regiment ate breakfast and lunch in room resting in bed comfortably received tylenal earlier today encourage mr shetty to draft roller picker narcan from pharmacy upon discharge from detox recommend medication assisted treatment program for opiate abuse recovery Objective: 01/01/20 13:15 Vital Signs - 24 hr 12/31/19 12/31/19 01/01/20 17:00 20:43 05:29 Temperature 96.9 F L 97.3 F L 97.3 F L Pulse Rate 53 L 62 60 Respiratory 16 16 18 Rate Blood Pressure 130/79 109/72 105/62 O2 Sat by Pulse 97 100 Oximetry (%) 01/01/20 09:00 Temperature 96.8 F L Pulse Rate 70 Respiratory 18 Rate Blood Pressure 122/66 O2 Sat by Pulse Oximetry (%) Laboratory Tests 12/31/19 12/31/19 07:30 07:30 Syphilis Serology Non-reactive HIV Ag/Ab Combo Qual Negative 01/01/20 13:17 lab seen ER 12/30/19 Assessment: 01/01/20 13:17 opiate withdrawal Plan: methadone regiment
[2020-01-01] MEDS: SUVOREXANT 10 MG TABLET PO PRN (22:17)
[2020-01-01] MEDS: MIRTAZAPINE 15 MG TABLET (FP) PO SCH (22:17)
[2020-01-01] MEDS: THIAMINE HCL 100 MG TABLET (FP) PO SCH (22:17)
--- NOTE | 2020-01-02 09:12 | PN ---
BHS COWS - Scale Resting Pulse: 0= [place] 80 or Below Sweatin= Chills/Flushing Restless Observation: 0= Sits Still Pupil Size: 1= Pupils >than Normal Bone or Joint Aches: 1= Mild Discomfort Runny Nose/ Eye Tearin= None GI Upset > 30mins: 1= Stomach Cramp Tremor Observation of Outstretched Hands: 1= Tremor Alvin, Not Seen Yawning Observation: 0= None Anxiety or Irritability: 1=Feels Anxious/Irritable Goose Flesh Skin: 0=Smooth Skin COWS Score: 6 BHS Progress Note (SOAP) Subjective: 29 years old male was admitted on 12/30/19 for opiate withdrawal sx management treating with methadone detox regiment seen by psychiatrist ludivina luna wellbutayush remeron feels tired prefers to sleep limited conversation with staff bmi 24.6 ensure 120 ml po tid with meals Objective: 01/02/20 09:12 Vital Signs - 24 hr 01/01/20 01/01/20 01/01/20 12:48 16:49 20:46 Temperature 98.0 F 98.6 F 97.7 F Pulse Rate 72 98 H 69 Respiratory 18 18 18 Rate Blood Pressure 106/60 118/71 102/71 O2 Sat by Pulse 98 97 Oximetry (%) Laboratory Tests 12/31/19 12/31/19 07:30 07:30 Syphilis Serology Non-reactive HIV Ag/Ab Combo Qual Negative 01/02/20 09:17 covid pending mr shetty found unconscious in parking lot sent to ER treated with opiate intoxication became conscious sent to [facility] for opiate detox Assessment: 01/02/20 09:19 opiate withdrawal Plan: methadone regiment
[2020-01-02] MEDS: OLANZapine 10 MG TABLET PO SCH ×2 (09:31→22:04)
[2020-01-02] MEDS: PRENATAL VITAMINS W/ FOLIC ACID TABLET (FP) PO SCH (09:32)
[2020-01-02] MEDS ORDERED: METHADONE HCL 10 MG TABLET (FOR DETOX USE ONLY) PO ONE (10:00)
[2020-01-02] MEDS: METHOCARBAMOL 500 MG TABLET PO PRN (17:19)
[2020-01-02] MEDS: SUVOREXANT 10 MG TABLET PO PRN (22:04)
[2020-01-02] MEDS: MIRTAZAPINE 15 MG TABLET (FP) PO SCH (22:04)
[2020-01-02] MEDS: THIAMINE HCL 100 MG TABLET (FP) PO SCH (22:04)
[2020-01-02 23:08] VITALS: TEMP 97.3
[2020-01-03] MEDS: OLANZapine 10 MG TABLET PO SCH (09:03)
[2020-01-03] MEDS: PRENATAL VITAMINS W/ FOLIC ACID TABLET (FP) PO SCH (09:04)
[2020-01-03 09:18] VITALS: BP 110/73; PULSE 87
[2020-01-03] MEDS ORDERED: METHADONE HCL 10 MG TABLET (FOR DETOX USE ONLY) PO ONE (10:00)
[2020-01-03] MEDS ORDERED: METHADONE HCL 5 MG TABLET (FOR DETOX USE ONLY) PO ONE (10:00)
--- NOTE | 2020-01-03 15:47 | DS ---
[facility] Detox Discharge Summary Admission Date: 12/30/19 Discharge Date: 01/03/20 - History Present History: Opioid Dependence Additional Comments: 30 years old male was admitted on 12/30/19 for opiate withdrawal sx management treating with opiate withdrawal sx management seen by psychiatrist ludivina chu mr shetty has completed methadone detox regiment and is tolerated well General Appearance: Yes: no Distress, good hygiene, speech clearly mild Anxious HEENTM: Yes: EOMI, Hearing grossly Normal, Normocephalic, Normal Voice, Nasal Congestion, Rhinorrhea Respiratory: Yes: Chest Non-Tender, Lungs Clear, Normal Breath Sounds, No Respiratory Distress, No Accessory Muscle Use Neck: Yes: No masses,lesions,Nodules, Trachea in good position Cardiology: Yes: Regular Rhythm, Regular Rate, S1, S2 Abdominal: Yes: Non Tender, Soft Musculoskeletal: Yes: Gait Steady Extremities: Yes: Normal Capillary Refill, Normal Range of Motion, Non-Tender Neurological: Yes: Alert, Motor Strength 5/5, alert oriented x 3 appropriated Affect Integumentary: Yes: Warm Pertinent Past History: time for discharge 48 minutes transferred order set from detox to [facility] - Physical Exam Results Vital Signs: Vital Signs Temperature 97.3 F L 01/03/20 08:45 Pulse Rate 87 01/03/20 08:45 Respiratory Rate 18 01/03/20 08:45 Blood Pressure 110/73 01/03/20 08:45 O2 Sat by Pulse Oximetry (%) 97 01/02/20 20:26 Pertinent Admission Physical Exam Findings: opiate withdrawal Vital Signs - 24 hr 01/02/20 01/02/20 01/03/20 16:41 20:26 08:45 Temperature 98.4 F 97.3 F L 97.3 F L Pulse Rate 77 89 87 Respiratory 18 18 18 Rate Blood Pressure 98/66 112/74 110/73 O2 Sat by Pulse 97 Oximetry (%) Laboratory Tests 12/30/19 12/31/19 12/31/19 08:30 07:30 07:30 Syphilis Serology Non-reactive COVID-19 (JULIANA) Not detected HIV Ag/Ab Combo Qual Negative lab noted - Treatment Hospital Course: Detox Protocol Followed, Detoxed Safely, Responded well, Discharged Condition Good, Rehab Referral Accepted Patient has Accepted a Rehab Referral to: [facility] - Medication Discharge Medications: Ambulatory Orders Naloxone HCl [Narcan] 4 mg NS ASDIR PRN #1 spray 01/01/20 Naloxone HCl [Narcan] 4 mg NS ONCE #2 ml 01/01/20 Bupropion HCl [Wellbutrin Xl -] 150 mg PO DAILY 01/03/20 Mirtazapine [Remeron -] 15 mg PO HS 01/03/20 Olanzapine [Zyprexa] 10 mg PO BID 01/03/20 - Diagnosis (1) Opioid dependence with withdrawal Status: Acute (2) Substance induced mood disorder Status: Suspected (3) GERD (gastroesophageal reflux disease) Status: Chronic Qualifiers: Esophagitis presence: without esophagitis Qualified Code(s): K21.9 - Gastro-esophageal reflux disease without esophagitis (4) Nicotine dependence Status: Acute Qualifiers: Nicotine product type: cigarettes Substance use status: in withdrawal Qualified Code(s): F17.213 - Nicotine dependence, cigarettes, with withdrawal (5) Type 2 diabetes mellitus Status: Chronic Qualifiers: Diabetes mellitus termite inspector insulin use: without termite inspector use Diabetes mellitus complication status: without complication Qualified Code(s): E11.9 - Type 2 diabetes mellitus without complications - AMA Did Patient Leave Against Medical Advice: No COWS (PN) - Opiate Withdrawal Resting Pulse: 1= SD 81-100 Sweatin= No chills or Flushing Restless Observation: 0= Sits Still Pupil Size: 0= Normal to Room Light Bone or Joint Aches: 0= None Runny Nose/ Eye Tearin= None GI Upset > 30mins: 0= None Tremor Observation of Outstretched Hands: 1= Tremor [place], Not Seen Yawning Observation: 0= None Anxiety or Irritability: 1=Feels Anxious/Irritable Goose Flesh Skin: 0=Smooth Skin COWS Score: 3
== END 2020-01-03 09:04 | disposition home or self-care (01) | DRG 773 ==
LOC: YASAS 18:42 → Y3N 20:16
PROVIDERS: ADMIT Allergy & Immunology; ATTEND Allergy & Immunology
PROC: HZ2ZZZZ Detoxification Services for Substance Abuse Treatment (ICD-10-PCS; principal; 2019-12-30)
DX: F11.23 Opioid dependence with withdrawal (principal); F11.229 Opioid dependence with intoxication, unspecified; F10.230 Alcohol dependence with withdrawal, uncomplicated; F16.20 Hallucinogen dependence, uncomplicated; F12.20 Cannabis dependence, uncomplicated; F17.210 Nicotine dependence, cigarettes, uncomplicated; F19.24 Other psychoactive substance dependence with psychoactive substance-induced mood disorder; F19.282 Other psychoactive substance dependence with psychoactive substance-induced sleep disorder; F25.9 Schizoaffective disorder, unspecified; E11.9 Type 2 diabetes mellitus without complications; K21.9 Gastro-esophageal reflux disease without esophagitis; Z62.810 Personal history of physical and sexual abuse in childhood; Z56.0 Unemployment, unspecified
CPT/HCPCS: 36415; 86780; 87389; J0735; U0003